=== PATIENT | male | born 2000 | race Two or more races ===

== ENCOUNTER 2024-12-21 10:34 | Emergency (ER) | payer MEDICAID, SELFPAY ==
[2024-12-21 10:34] VITALS: BMI 33.2
--- NOTE | 2024-12-21 10:44 | EDNOTE_ITS ---
ED Allergic Reaction RME/HPI General Chief complaint: Allergic Reaction Stated complaint: ALLERGIC REACTION 6PM YESTERDAY, SOB, DIARRHEA Time Seen by Provider: 12/21/24 10:48 Source: patient Arrival date/time: 12/21/24 10:34 24-year-old male with no known medical history presents to the emergency room with a chief complaint of generalized hives to his abdomen upper extremity and neck that began yesterday at 6 PM. Patient states he is also having some mild shortness of breath and diarrhea. Mode of arrival: ambulatory Limitations: no limitations Related Data Previous Rx's ?Medication ?Instructions ?Recorded diphenhydramine HCl 25 mg capsule 25 mg PO TID PRN all ergic reaction 12/21/24 #14 caps Allergies Allergy/AdvReac Type Severity Reaction Status Date / Time amoxicillin (From Augmentin) Allergy Severe Difficulty Verified 12/21/24 10:37 Breathing clavulanic acid (From Allergy Severe Difficulty Verified 12/21/24 10:37 Augmentin) Breathing Review of Systems Review of Systems Systems Reviewed: All systems reviewed, normal except as documented Constitutional Constitutional: Reports system reviewed and no additional complaints, except as documented, Denies fatigue, Denies fever(s), Denies headache(s) and Denies weakness Eyes Eyes: Reports system reviewed and no additional complaints, except as documented, Denies blurry vision, Denies change in vision and Denies itchy eyes ENT Ears, Nose, Mouth, and Throat: Reports system reviewed and no additional complaints, except as documented, Denies otalgia, Denies headache(s), Denies lip swelling, Denies nasal congestion, Denies throat swelling, Denies tongue swelling and Denies vertigo Cardiovascular Cardiovascular: Reports system reviewed and no additional complaints, except as documented, Denies chest pain, Denies dyspnea and Denies dyspnea on exertion Respiratory Respiratory: Reports system reviewed and no additional complaints, except as documented, Denies chest congestion, Denies cough, Denies dyspnea, Denies dyspnea on exertion and Denies wheezing Gastrointestinal Gastrointestinal: Reports system reviewed and no additional complaints, except as documented, Denies abdominal pain, Denies cramping, Denies nausea and Denies vomiting Genitourinary Genitourinary: Reports system reviewed and no additional complaints, except as documented, Denies dysuria and Denies hematuria Musculoskeletal Musculoskeletal: Reports system reviewed and no additional complaints, except as documented and Denies back pain Integumentary/Breasts Skin/Breast: Reports system reviewed and no additional complaints, except as documented and Denies wounds Neurologic Neurologic: Reports system reviewed and no additional complaints, except as documented, Denies confusion, Denies headache(s), Denies lack of coordination, Denies vertigo and Denies weakness Psychiatric Psychiatric: Reports system reviewed and no additional complaints, except as documented, Denies anxiety, Denies confusion, Denies depression, Denies paranoia, Denies suicidal ideation and Denies tactile hallucinations Endocrine Endocrine: Reports system reviewed and no additional complaints, except as documented and Denies fatigue Hematologic/Lymphatic Hematologic/Lymphatic: Reports system reviewed and no additional complaints, except as documented and Denies lymphadenopathy Allergic/Immunologic Allergic/Immunologic: Reports system reviewed and no additional complaints, except as documented, Denies itchy eyes, Denies lip swelling, Denies seasonal rhinorrhea, Denies throat swelling, Denies tongue swelling, Reports urticaria and Denies wheezing Past Medical History Past Medical History CARDIAC: Negative Congestive Heart Failure RESPIRATORY: Negative Chronic Obstructive Pulmonary Disease (COPD) GENITOURINARY: Negative Renal Disease ENDOCRINE: Negative Diabetes Mellitus Type 1 or Diabetes Mellitus Type 2 Family History FAMILY HISTORY: Positive Family Cardiac Disorders (chf, murmus) Social History SMOKING STATUS: Never smoker ED Exam General Limitations: Present no limitations General appearance: Present alert and in no apparent distress Head Head exam: Present atraumatic Eye Eye exam: Present normal appearance, PERRL and EOMI ENT ENT exam: Present normal exam, normal oropharynx and mucous membranes moist Neck Neck exam: Present normal inspection, full ROM and trachea midline Chest Chest inspection: Present normal inspection and symmetric chest wall rise Respiratory Respiratory exam: Present normal lung sounds bilaterally; Absent respiratory distress, wheezes, stridor, accessory muscle use or prolonged expiratory phase Cardiovascular Cardiovascular exam: Present regular rate, normal rhythm and normal heart sounds Abdominal Exam Abdominal exam: Present soft and normal bowel sounds Extremities Exam Extremities exam: Present normal inspection and full ROM Back Exam Back exam: Present normal inspection and full ROM Neurological Exam Neurological exam: Present alert, oriented X3 and CN II-XII intact Psychiatric Psychiatric exam: Present normal affect and normal mood Skin Skin exam: Present warm, dry, intact and normal color Expanded Skin Exam Type of lesion: Present rash Distribution: Present generalized Description: Present erythematous and other (Hives) Course Quality Measures none Orders Category Date Time Status Dexamethasone Inj [Decadron Inj] Med 12/21/24 10:44 Discontinued 10 mg PO X1 ONE DiphenhydrAMINE [Benadryl] Med 12/21/24 10:44 Discontinued 25 mg PO X1 ONE Famotidine [Pepcid] Med 12/21/24 10:44 Discontinued 20 mg PO X1 ONE Vital Signs Vital signs: Vital Signs Temperature 97.7 F 12/21/24 10:46 Pulse Rate 72 12/21/24 10:46 Respiratory Rate 18 12/21/24 10:46 Blood Pressure 145/93 H 12/21/24 10:46 Pulse Oximetry (%) 98 12/21/24 10:46 Oxygen Delivery Method Room Air 12/21/24 10:46 Allergic Reaction MDM Narrative MDM Narrative:: 24-year-old male with no known medical history presents to the emergency room with a chief complaint of generalized hives to his abdomen upper extremity and neck that began yesterday at 6 PM. Patient states he is also having some mild shortness of breath and diarrhea. Patient is hemodynamically stable and in no apparent distress. He is afebrile not tachycardic not tachypneic and O2 saturation 98% on room air Physical examination shows clear bilateral lung sounds with no wheezing stridor or any abnormal breath sounds. The patient does not have any lip swelling tongue swelling Antihistamines were given with significant improvement to the patient's symptoms Patient was discharged and educated to follow-up with primary care provider in the next 24 to 48 hours and return to the emergency room for any evidence of worsening signs or symptoms Patient data External records reviewed:: [facility] previous records Clinical information provided by:: patient Social determinants that could affect healthcare access:: none Patient has the following chronic illnesses:: No chronic illness How is presenting disease/condition affected by chronic disease/condition?: no chronic disease Evaluation data The following diagnostics were reviewed and interpreted by me:: lab results and radiology exam(s) Lab and/or radiology exams considered but not ordered:: Labs and radiology exams considered and ordered Interpretation Summary: N/A Medications / Prescriptions Medications or Prescriptions considered but not ordered:: Medication given Medication administrations:: Medication Administration History Discontinued Medications Dexamethasone Sodium Phosphate (Dexamethasone Sod Phos Inj 10 Mg/Ml Vial) 10 mg PO X1 ONE Stop: 12/21/24 10:45 Last Admin: 12/21/24 10:51 Dose: 10 mg Documented By: NOLVIA Diphenhydramine HCl (Diphenhydramine Elix 25 Mg/10 Ml Udc) 25 mg PO X1 ONE Stop: 12/21/24 10:45 Last Admin: 12/21/24 10:50 Dose: 25 mg Documented By: NOLVIA Famotidine (Famotidine 20 Mg Tablet) 20 mg PO X1 ONE Stop: 12/21/24 10:45 Last Admin: 12/21/24 10:49 Dose: 20 mg Documented By: NOLVIA Medication given Consultations Consultation(s) initiated? (list below): No Diagnosis Differential Diagnosis allergic reaction: anaphylaxis, allergic reaction, conta ct dermatitis, urticaria and other Most likely diagnosis given after review of the tests above:: Allergic reaction Admission Indicated Admission indicated?: not indicated Admission Request Was there a request for admission?: No Disposition Plan Disposition Plan: Discharge Discharge Attestation Discharge Attestation: The patient and all family members were given an opportunity to ask questions and understood the discharge instructions. Discharge instructions specifically effects, indications for sooner follow up or return to the emergency department, and the expected course of current diagnosis. Patient condition: Stable Discharge Plan Plan Patient Disposition: HOME (Self Care) Discharge Disposition comment: Stable Prescriptions/Referrals Prescriptions/Med Rec: New diphenhydramine HCl 25 mg capsule 25 mg PO TID PRN (Reason: allergic reaction) Qty: 14 0RF Referrals: No Primary/Family,Physician [Primary Care Provider] - In 1 week Problem List Clinical Impression: Allergic reaction Patient/Caregiver Discharge Instructions Education Materials: ED Medicine Reaction: Allergic Additional Instructions: Please follow-up with your primary care provider in the next 24 to 48 hours Medication was sent to your pharmacy please pick it up and take it as indicated For any evidence of worsening signs or symptoms return to the emergency room immediately Print Language: Welsh Stand Alone Forms: Kena Award Info., Patient Portal Info Letter PA/JEFFY Supervising Physician KYLAH/JEFFY Supervising Physician: Dr. Whitfield
[2024-12-21 10:46] VITALS: BP 145/93; PULSE 72; RESP 18; TEMP 36.5; O2SAT 98
[2024-12-21] MEDS: FAMOTIDINE 20 MG TABLET PO (10:49)
[2024-12-21] MEDS: DiphenhydrAMINE ELIX 25 MG/10 ML UDC PO (10:50)
[2024-12-21] MEDS: DEXAMETHASONE SOD PHOS INJ 10 MG/ML VIAL PO (10:51)
== END 2024-12-21 12:05 | disposition home or self-care (01) ==
PROVIDERS: Emergency Provider Nurse Practitioner Family
DX: T78.40XA Allergy, unspecified, initial encounter (principal)
CPT/HCPCS: 99283; J1100; A9270